=== PATIENT | female | born 1955 | race Caucasian/White ===

== ENCOUNTER 2024-08-03 21:55 | Outpatient (REF) | payer MEDICARE, OTHER, SELFPAY | END 2024-08-03 21:56 | disposition home or self-care (01) | LOC: NCHCN 21:55 | PROVIDERS: PCP Registered Nurse; Visit Provider Family Medicine | DX: N39.0 Urinary tract infection, site not specified (principal); B96.29 Other Escherichia coli [E. coli] as the cause of diseases classified elsewhere | CPT/HCPCS: 87077; 87086; 87186 ==

== ENCOUNTER 2024-08-12 14:36 | Outpatient (REF) | payer MEDICARE, OTHER, SELFPAY ==
[2024-08-12 17:45] LABS: COMMENT (LAB VIEW ONLY) 258.41 mg/dL; Microalb ug/mg Crea 3.2 ug/mg Cr
== END 2024-08-12 14:37 | disposition home or self-care (01) ==
LOC: NCHCN 14:36
PROVIDERS: PCP Registered Nurse; Visit Provider Nurse Practitioner Family
DX: E11.22 Type 2 diabetes mellitus with diabetic chronic kidney disease (principal)
CPT/HCPCS: 82043; 82570

== ENCOUNTER 2024-08-18 11:41 | Outpatient (CLI) | payer MEDICARE, OTHER, SELFPAY ==
--- NOTE | 2024-08-18 13:51 | DI.RAD_ITS ---
Exam(s) XR KNEE RT 3V AP,LAT,MELI EXAM: XR KNEE RT 3V AP,LAT,MELI CLINICAL HISTORY: PAIN OF BILATERAL KNEE REGIONS, PAIN IN RIGHT KNEE M25.561. TECHNIQUE: 2D digital imaging was performed. Three views. COMPARISON: CR XR KNEE LT 3V AP,LAT,MELI from 08/18/2024 FINDINGS: BONES: No acute fracture is present. No bony destructive lesion is seen. JOINTS: Severe narrowing of the medial femoral tibial joint space causing varus angulation. Periarti cular spurring. Prominent spurring is also noted at the patellofemoral joint. No joint effusion is seen. SOFT TISSUE: Normal. IMPRESSION: Severe degenerative changes of the medial femoral tibial joint. DATA REPOSITORY: RADIATION DOSE DELIVERED:
--- NOTE | 2024-08-18 13:51 | DI.RAD_ITS ---
Exam(s) XR KNEE LT 3V AP,LAT,MELI EXAM: XR KNEE LT 3V AP,LAT,MELI CLINICAL HISTORY: PAIN IN BILATERAL KNEE REGIONS, PAIN IN LEFT KNEE M25.56. TECHNIQUE: 2D digital imaging was performed. Three views. COMPARISON: No exams were available for comparison FINDINGS: BONES: No acute fracture is present. No bony destructive lesion is seen. JOINTS: Moderate narrowing of the medial femoral tibial joint space and mild periarticular spurring. Mild spurring is also noted at the patellofemoral joint. No joint effusion is seen. SOFT TISSUE: Venous varicosities noted medially. IMPRESSION: Moderate degenerative changes of the medial femoral tibial joint. DATA REPOSITORY: RADIATION DOSE DELIVERED:
== END 2024-08-18 12:01 ==
LOC: DI 11:44
PROVIDERS: PCP Registered Nurse; Visit Provider Nurse Practitioner Family
DX: M16.0 Bilateral primary osteoarthritis of hip (principal)
CPT/HCPCS: 73562

== ENCOUNTER 2024-10-14 13:05 | Outpatient (REF) | payer MEDICARE, OTHER, SELFPAY ==
[2024-10-14 16:40] LABS: ALT 37 U/L (14-59); AST 27 U/L (15-37); Albumin 3.8 g/dL (3.4-5.0); Alkaline Phosphatase 69 U/L (46-116); Anion Gap 9.6 mmol/L (3-11); BUN 30 mg/dL (7-18); Bilirubin, Total 0.7 mg/dL (0.2-1.0); CO2 29.4 mmol/L (21.0-32.0); CREATININE 1.4 mg/dL (0.55-1.02); Calcium 9.3 mg/dL (8.5-10.1); Calculated LDL 44 mg/dL (<100); Chloride 102 mmol/L (98-107); Cholesterol 130 mg/dL (<200); Estimated GFR 41.49 (mL/min/1.73m2); Glucose 182 mg/dL (74-106); HDL Cholesterol 66 mg/dL (>or=50); Potassium 4.4 mmol/L (3.5-5.1); Sodium 141 mmol/L (136-145); Total Protein 6.8 g/dL (6.4-8.2); Triglyceride 103 mg/dL (<150)
[2024-10-14 17:33] LABS: Vitamin D 25 Total 77 ng/mL (30-100)
[2024-10-14 23:00] LABS: CA 125 10 U/mL (<30)
== END 2024-10-14 13:06 | disposition home or self-care (01) ==
LOC: NCHCN 13:05
PROVIDERS: PCP Registered Nurse; Visit Provider Nurse Practitioner Family
DX: I10 Essential (primary) hypertension (principal); E55.9 Vitamin D deficiency, unspecified; Z85.42 Personal history of malignant neoplasm of other parts of uterus
CPT/HCPCS: 80053; 80061; 82306; 86304

== ENCOUNTER 2025-04-27 12:23 | Outpatient (REF) | payer MEDICARE, OTHER, SELFPAY ==
[2025-04-27 17:02] LABS: Vitamin D 25 Total 82 ng/mL (30-100)
[2025-04-27 17:26] LABS: ALT 35 U/L (10-49); AST 38 U/L (<34); Albumin 4.5 g/dL (3.2-5.0); Alkaline Phosphatase 66 U/L (46-116); Anion Gap 13.6 mmol/L (3-11); BUN 27 mg/dL (9-23); Bilirubin, Total 0.5 mg/dL (0.2-1.2); CO2 24.4 mmol/L (20.0-31.0); Calcium 9.7 mg/dL (8.3-10.6); Chloride 105 mmol/L (98-107); Cholesterol 133 mg/dL (<200); Glucose 149 mg/dL (74-106); HDL Cholesterol 62 mg/dL (>or=50); Potassium 3.7 mmol/L (3.5-5.1); Sodium 143 mmol/L (136-145); Total Protein 7.2 g/dL (5.7-8.2)
[2025-04-27 18:13] LABS: Hemoglobin A1C 6.9 % (<5.7)
== END 2025-04-27 12:24 | disposition home or self-care (01) ==
LOC: NCHCN 12:23
PROVIDERS: PCP Registered Nurse; Visit Provider Nurse Practitioner Family
DX: Z78.0 Asymptomatic menopausal state (principal); I10 Essential (primary) hypertension; E11.9 Type 2 diabetes mellitus without complications; Z79.4 Long term (current) use of insulin; E78.5 Hyperlipidemia, unspecified
CPT/HCPCS: 80053; 80061; 82306; 83036